=== PATIENT | female | born 1970 | race Caucasian/White ===

== ENCOUNTER 2016-09-30 12:20 | Emergency (ER) | payer SELFPAY ==
[2016-09-30 12:24] VITALS: BP 137/77
--- NOTE | 2016-09-30 13:09 | ER Document Report ---
ED Medical Screen (RME) - General Stated Complaint: MOUTH PAIN Time seen by provider: 13:08 Mode of Arrival: Ambulatory Information source: Patient Notes: 46-year-old female complaining of a dental abscess right lower gingiva. She has multiple decayed teeth. There is no fever. Is allergic to NSAIDs. I have greeted and performed a rapid initial assessment of this patient. A comprehensive ED assessment, evaluation of the patient, analysis of test results , and completion of the medical decision making process will be contacted by additional ED providers. TRAVEL OUTSIDE OF THE [place] IN LAST 30 DAYS: No - Related Data Allergies/Adverse Reactions: NSAIDS (Non-Steroidal Anti-Inflamma [Nsaids] Allergy (Verified 09/30/16 13:05) Past Medical History - Past Medical History Cardiac Medical History: Denies: Hx Coronary Artery Disease Neurological Medical History: Reports: Hx Seizures Endocrine Medical History: Denies: Hx Diabetes Mellitus Type 1, Hx Diabetes Mellitus Type 2 GI Medical History: Reports: Hx Colonoscopy, Hx Endoscopy Musculoskeltal Medical History: Reports Hx Fibromyalgia, Reports Hx Musculoskeletal Deformity, Reports Hx Musculoskeletal Trauma Psychiatric Medical History: Reports: Hx Anxiety, Hx Depression Traumatic Medical History: Reports: Hx Fractures Past Surgical History: Reports: Hx Abdominal Surgery, Hx Gastric Bypass Surgery , Hx Tubal Ligation - Immunizations Hx Diphtheria, Pertussis, Tetanus Vaccination: No Physical Exam - Vital signs Vitals: Temp Pulse Resp BP Pulse Ox 98.1 F 103 H 16 137/77 H 96 09/30/16 12:23 09/30/16 12:23 09/30/16 12:23 09/30/16 12:23 09/30/16 12:23 Course - Vital Signs Vital signs: Temp Pulse Resp BP Pulse Ox 98.1 F 103 H 16 137/77 H 96 09/30/16 12:23 09/30/16 12:23 09/30/16 12:23 09/30/16 12:23 09/30/16 12:23
[2016-09-30] MEDS ORDERED: BUPIVACAINE HCL 0.5 % INJ/PF 30 ML SDV INJ ONE (13:27)
--- NOTE | 2016-09-30 13:34 | ER Document Report ---
HPI - HPI Patient complains to provider of: toothache Pain Level: 4 Context: 46-year-old female complaining of a dental abscess right lower gingiva. She has multiple decayed teeth. There is no fever. Is allergic to NSAIDs. has been taking alot of apap without relief 4 days ago h/o dental abscess. has partial dentures PSH; gastric bypass PCP: dr adler - REPRODUCTIVE LMP: [id number] Reproductive: DENIES: : - DERM Skin Color: Normal Past Medical History - General Information source: Patient - Social History Smoking Status: Current Every Day Smoker Chew tobacco use (# tins/day): No Frequency of alcohol use: Occasional Drug Abuse: None Family History: Arthritis, Other - epilepsy/seizures. denies: CAD, CVA, DM, Hyperlipidemia, Hypertension, Malignancy, Thyroid Disfunction Patient has suicidal ideation: No Patient has homicidal ideation: No - Past Medical History Cardiac Medical History: Denies: Hx Coronary Artery Disease Neurological Medical History: Reports: Hx Seizures Endocrine Medical History: Denies: Hx Diabetes Mellitus Type 1, Hx Diabetes Mellitus Type 2 Renal/ Medical History: Denies: Hx Peritoneal Dialysis GI Medical History: Reports: Hx Colonoscopy, Hx Endoscopy Musculoskeltal Medical History: Reports Hx Fibromyalgia, Reports Hx Musculoskeletal Deformity, Reports Hx Musculoskeletal Trauma Psychiatric Medical History: Reports: Hx Anxiety, Hx Depression Traumatic Medical History: Reports: Hx Fractures Past Surgical History: Reports: Hx Abdominal Surgery, Hx Gastric Bypass Surgery , Hx Tubal Ligation - Immunizations Hx Diphtheria, Pertussis, Tetanus Vaccination: No Vertical Provider Document - CONSTITUTIONAL Agree With Documented VS: Yes - INFECTION CONTROL TRAVEL OUTSIDE OF THE [place] IN LAST 30 DAYS: No - HEENT HEENT: Atraumatic, Normal ENT Exam, Normocephalic, PERRLA Mouth Diagram: 1 - teeth missing but gingival inflammation, tenderness - NECK Neck: Normal Inspection Notes: No evidence of abscess. 18-gauge needle inserted into gingival inflammation without any return of pus. No evidence of [place] angina, retropharyngeal abscess or peritonsillar abscess - RESPIRATORY Respiratory: Breath Sounds Normal, No Respiratory Distress, Chest Non-Tender. negative: Rales, Rhonchi, Wheezing O2 Sat by Pulse Oximetry: 96 - CARDIOVASCULAR Cardiovascular: Regular Rate, Regular Rhythm, No Murmur Pulses: Normal: Radial - NEURO Level of Consciousness: Awake, Alert, Appropriate Motor/Sensory: No Motor Deficit, No Sensory Deficit - DERM Integumentary: Warm, Dry, No Rash Course - Re-evaluation Re-evalutation: 09/30/16 13:42 Patient is a 46-year-old female presents emergency department toothache for the past 4 days. No evidence of gingival abscess. Patient did receive a dental block with 0.5% Sensorcaine which did alleviate her symptoms. Will discharge patient home on by mouth penicillin and can follow up with dentist in the next 7 -10 days. - Vital Signs Vital signs: Temp Pulse Resp BP Pulse Ox 98.1 F 103 H 16 137/77 H 96 09/30/16 12:23 09/30/16 12:23 09/30/16 12:23 09/30/16 12:23 09/30/16 12:23 Discharge - Discharge Clinical Impression: Toothache Condition: Good Disposition: HOME, SELF-CARE Instructions: Penicillin V K (OM), Toothache (OM), Oral Narcotic Medication ( OM) Additional Instructions: Please follow-up with a dentist in 7-10 days to complete your antibiotics. Prescriptions: Oxycodone HCl/Acetaminophen [Percocet 5-325 mg Tablet] 1 tab PO Q6HP PRN #25 tab PRN Reason: Penicillin V Potassium [Penicillin Vk 500 mg Tablet] 500 mg PO BID #20 tablet Forms: Elevated Blood Pressure
== END 2016-09-30 15:54 | disposition home or self-care (01) ==
LOC: ER 12:20
PROC: 3E0T3BZ Introduction of Anesthetic Agent into Peripheral Nerves and Plexi, Percutaneous Approach (ICD-10-PCS; principal; 2016-09-30)
DX: K02.9 Dental caries, unspecified (principal); K05.10 Chronic gingivitis, plaque induced; K08.89 Other specified disorders of teeth and supporting structures; F17.200 Nicotine dependence, unspecified, uncomplicated; Z98.84 Bariatric surgery status; Z88.8 Allergy status to other drugs, medicaments and biological substances
CPT/HCPCS: 99282

== ENCOUNTER 2016-10-23 16:15 | Emergency (ER) | payer SELFPAY ==
--- NOTE | 2016-10-23 16:34 | ER Document Report ---
ED Medical Screen (RME) - General Chief Complaint: Toothache Stated Complaint: TOOTH PAIN Notes: 46 yo female c/o right lower dental pain x 3 days. treated for dental abscess last month. has not followed up with dental due to lack of insurance. no fever. no swelling TRAVEL OUTSIDE OF THE [place] IN LAST 30 DAYS: No - Related Data Allergies/Adverse Reactions: NSAIDS (Non-Steroidal Anti-Inflamma [Nsaids] Allergy (Verified 10/23/16 16:32) Past Medical History - Social History Chew tobacco use (# tins/day): No Frequency of alcohol use: None Drug Abuse: None - Past Medical History Cardiac Medical History: Denies: Hx Coronary Artery Disease Neurological Medical History: Reports: Hx Seizures Endocrine Medical History: Denies: Hx Diabetes Mellitus Type 1, Hx Diabetes Mellitus Type 2 Renal/ Medical History: Denies: Hx Peritoneal Dialysis GI Medical History: Reports: Hx Colonoscopy, Hx Endoscopy Musculoskeltal Medical History: Reports Hx Fibromyalgia, Reports Hx Musculoskeletal Deformity, Reports Hx Musculoskeletal Trauma Psychiatric Medical History: Reports: Hx Anxiety, Hx Depression Traumatic Medical History: Reports: Hx Fractures Past Surgical History: Reports: Hx Abdominal Surgery, Hx Gastric Bypass Surgery , Hx Tubal Ligation - Immunizations Hx Diphtheria, Pertussis, Tetanus Vaccination: No Physical Exam - Vital signs Vitals: Temp Pulse Resp BP Pulse Ox 98.3 F 99 16 125/95 H 95 10/23/16 16:28 10/23/16 16:28 10/23/16 16:28 10/23/16 16:28 10/23/16 16:28 Course - Vital Signs Vital signs: Temp Pulse Resp BP Pulse Ox 98.3 F 99 16 125/95 H 95 10/23/16 16:28 10/23/16 16:28 10/23/16 16:28 10/23/16 16:28 10/23/16 16:28
[2016-10-23] MEDS ORDERED: PENICILLIN V POTASSIUM 500 MG TABLET PO ONE (18:29)
[2016-10-23] MEDS ORDERED: PROMETHAZINE HCL 25 MG TABLET PO ONE (18:30)
[2016-10-23] MEDS ORDERED: OXYCODONE-ACETAMINOPHEN 5-325 MG TABLET PO ONE (18:30)
--- NOTE | 2016-10-23 18:37 | ER Document Report ---
ED Oral Problem - General Chief Complaint: Toothache Stated Complaint: TOOTH PAIN Notes: Patient has had pain around her lower right tooth with some swelling for the past 3-4 days. She was gently pressing on the swollen area a couple of days ago and a "pus pocket" opened and drained out some pus, but it has reoccurred and is even larger now. Her pain has gotten worse. No fever. TRAVEL OUTSIDE OF THE [place] IN LAST 30 DAYS: No - Related Data Allergies/Adverse Reactions: NSAIDS (Non-Steroidal Anti-Inflamma [Nsaids] Allergy (Verified 10/23/16 16:32) Past Medical History - Social History Smoking Status: Current Every Day Smoker Chew tobacco use (# tins/day): No Frequency of alcohol use: None Drug Abuse: None Family History: Reviewed & Not Pertinent, Arthritis, Other - epilepsy/seizures Patient has suicidal ideation: No Patient has homicidal ideation: No Neurological Medical History: Reports: Hx Seizures GI Medical History: Reports: Hx Colonoscopy, Hx Endoscopy Musculoskeltal Medical History: Reports Hx Fibromyalgia, Reports Hx Musculoskeletal Deformity, Reports Hx Musculoskeletal Trauma Psychiatric Medical History: Reports: Hx Anxiety, Hx Depression Traumatic Medical History: Reports: Hx Fractures Past Surgical History: Reports: Hx Abdominal Surgery - gastric bypass, Hx Gastric Bypass Surgery, Hx Tubal Ligation - Immunizations Hx Diphtheria, Pertussis, Tetanus Vaccination: No Review of Systems - Review of Systems Constitutional: denies: Fever EENT: Mouth pain, Mouth swelling, Dental problem. denies: Throat pain, Difficulty swallowing, Throat swelling Physical Exam - Vital signs Vitals: Temp Pulse Resp BP Pulse Ox 98.3 F 99 16 125/95 H 95 10/23/16 16:28 10/23/16 16:28 10/23/16 16:28 10/23/16 16:28 10/23/16 16:28 Interpretation: Normal - Notes Notes: PHYSICAL EXAMINATION: GENERAL: Appears in pain, but in no acute distress. Afebrile. HEAD: Atraumatic, normocephalic. EYES: Pupils equal round and reactive to light, extraocular movements intact. ENT: oropharynx clear without exudates. Moist mucous membranes. Swelling of the right mid mandible area which is very tender to the touch from the outside. Even more painful to touch from inside. I think I feel a fluctuant spot in the lower right sulcus. Several carious teeth present. NECK: Normal range of motion, supple. No impingement on swallowing or airway. LUNGS: Breath sounds clear and equal bilaterally. HEART: Regular rate and rhythm without murmurs. ABDOMEN: Soft, nontender. No guarding or rebound. Course - Re-evaluation Re-evalutation: 10/23/16 21:12 I attempted needle aspiration/ind with an 18-gauge needle and stuck it in the fluctuant area of the gum in the right sulcus and initially did not get any drainage, but after I had finished and gently pressed on the area, the patient says she could taste something in her mouth and feels like it is draining and when I returned later, she said that the swelling has gone down some. Patient will be put on penicillin and pain meds. - Vital Signs Vital signs: Temp Pulse Resp BP Pulse Ox 98.7 F 74 18 137/97 H 100 10/23/16 18:59 10/23/16 18:59 10/23/16 18:59 10/23/16 18:59 10/23/16 18:59 Discharge - Discharge Clinical Impression: Gingival abscess Condition: Stable Disposition: HOME, SELF-CARE Additional Instructions: Dental Infection or Abscess You have an infection, perhaps an abscess (pus formation) of the gum around one of your teeth, which is probably decayed. If there is an abscess, it may drain on its own or it may need to be opened or lanced. Severe swelling or drainage around a tooth usually means a deep dental abscess which usually requires evaluation and treatment by a dentist or oral surgeon. Antibiotics may be prescribed while awaiting dental treatment. If you develop high fever with chills, worsening pain, or increasing swelling in the area, see a dentist or oral surgeon immediately or return to the Emergency Department immediately. TOOTHACHE: Your pain is due to dental decay. The tooth must be repaired in order for you to feel better. You will, therefore, be referred to a dentist. We do not have dentists on the staff at [facility]. Severe swelling or drainage around a tooth usually means a dental abscess. This also requires evaluation and treatment by the dentist, but antibiotics may be prescribed while awaiting dental treatment. You should be rechecked immediately if you develop major swelling of the face, increasing pain, a lump in the jaw or gums, headache, difficulty swallowing, or fever. ORAL NARCOTIC MEDICATION: You have been given a prescription for pain control. This medication is a narcotic. It's best taken with food, as nausea can result if taken on an empty stomach. Don't operate machinery or drive within six hours of taking this medication. Do not combine this medicine with alcohol, or with any medication which can cause sedation (such as cold tablets or sleeping pills) unless you get permission from the physician. Narcotics tend to cause constipation. If possible, drink plenty of fluids and eat a diet high in fiber and fruits. PENICILLIN V K: You have been given a prescription for Penicillin VK. Your physician has determined that this is the best antibiotic for your condition. Pen VK can be taken with meals, however more of the antibiotic gets into the bloodstream if it's taken on an empty stomach. Penicillin usually has no side effects. However, allergy to penicillins is common. If you have had an allergic reaction to any drug of the penicillin family, you should never take any other penicillin. Notify your doctor at once if you develop hives, itching, swelling, faintness, or shortness of breath. FOLLOW-UP CARE: You have been referred for follow-up care to the dentists listed below. Call the dentists office for an appointment as you were instructed or within the next two days. If you experience worsening or a significant change in your symptoms, notify the physician immediately or return to the Emergency Department at any time for re-evaluation. If your gum is improving tomorrow morning, you don't need to return for a recheck. If your gum is more swollen tomorrow, return to the emergency department for reevaluation. If your gum is not worse tomorrow but has not shown improvement by Friday morning, return for reevaluation then. The following dental care facilities may be able to help you: [facility] [address] [place], [place] Friday mornings, by appointment [facility] [address] [place] [address] [facility] [address] [facility] [address] [facility] [address] [facility] [address] [email or web address] [address] [place] [address] Friday- 8:00am to 5:00 pm Will see patients from other [facility]. Charges based on income and family size and accepts Medicare, Medicaid, and Insurances Will pull molars [facility] [employer] [facility] [id number] Hours of Operation 8:00 am - 4:30 pm weekdays The following dental offices accept Medicaid: [facility] Dr. Steve Dr. Nichole Dr. Oconnor Dr. Pedersen Joshua Guillaume Lutsavage, and John oral surgery Dr. Montenegro ([place]) Dr. Gomez ([place]) [facility] Drs. Knight and Gurpreet ([place]) Dr. Bass ([place]) [facility] Dr. Aggarwal ([place]) Drs. Jorge and ([place]) Medicaid Care Line Prescriptions: Oxycodone HCl/Acetaminophen [Percocet 5-325 mg Tablet] 1 - 2 tab PO Q4H PRN #15 tablet PRN Reason: Penicillin V Potassium [Penicillin Vk 500 mg Tablet] 500 mg PO QID #25 tablet Referrals: KILO OLIVIER MD [Primary Care Provider] - Follow up as needed
[2016-10-23 19:01] VITALS: BP 137/97
== END 2016-10-23 18:59 | disposition home or self-care (01) ==
LOC: ER 16:15
DX: K05.219 Aggressive periodontitis, localized, unspecified severity (principal); K02.9 Dental caries, unspecified; K08.89 Other specified disorders of teeth and supporting structures; R22.0 Localized swelling, mass and lump, head; F17.200 Nicotine dependence, unspecified, uncomplicated; Z88.8 Allergy status to other drugs, medicaments and biological substances; Z98.84 Bariatric surgery status
CPT/HCPCS: 99282

== ENCOUNTER 2017-01-28 16:04 | Emergency (ER) | payer SELFPAY ==
[2017-01-28 16:16] VITALS: BP 128/75
[2017-01-28] MEDS ORDERED: ACETAMINOPHEN 325 MG TABLET PO ONE (17:48)
[2017-01-28] MEDS ORDERED: CYANOCOBALAMIN (VITAMIN B-12) INJ 1000 MCG/1 ML VIAL IM ONE (17:48)
--- NOTE | 2017-01-28 17:48 | ER Document Report ---
ED General Pain - General Chief Complaint: Back Pain Stated Complaint: BACK PAIN,FALL Time Seen by Provider: 01/28/17 17:12 Mode of Arrival: Ambulatory Information source: Patient Notes: Is a 46-year-old female who is well-known to this emergency department for pain complaints who presents to the ER today for low back pain after a fall over a month ago from her chair. Patient does not know why she fell but states that she "falls all the time." Patient is complaining of some left hip and right hip pain, left worse than right. Patient states that she needs to start going to pain management because she "knows I have slipped disc." She admits to numbness and tingling but states that she always has those in the feet. She denies hitting her head or loss of consciousness during the fall. TRAVEL OUTSIDE OF THE [place] IN LAST 30 DAYS: No - Related Data Allergies/Adverse Reactions: NSAIDS (Non-Steroidal Anti-Inflamma [Nsaids] Allergy (Verified 01/28/17 16:12) Past Medical History - General Information source: Patient - Social History Smoking Status: Current Every Day Smoker Chew tobacco use (# tins/day): No Frequency of alcohol use: None Drug Abuse: None Family History: Reviewed & Not Pertinent, Arthritis, Other - epilepsy/seizures Patient has suicidal ideation: No Patient has homicidal ideation: No - Past Medical History Cardiac Medical History: Denies: Hx Coronary Artery Disease Neurological Medical History: Reports: Hx Seizures Endocrine Medical History: Denies: Hx Diabetes Mellitus Type 1, Hx Diabetes Mellitus Type 2 Renal/ Medical History: Denies: Hx Peritoneal Dialysis GI Medical History: Reports: Hx Colonoscopy, Hx Endoscopy Musculoskeltal Medical History: Reports Hx Fibromyalgia, Reports Hx Musculoskeletal Deformity, Reports Hx Musculoskeletal Trauma Psychiatric Medical History: Reports: Hx Anxiety, Hx Depression Traumatic Medical History: Reports: Hx Fractures Past Surgical History: Reports: Hx Abdominal Surgery - gastric bypass, Hx Gastric Bypass Surgery, Hx Tubal Ligation - Immunizations Hx Diphtheria, Pertussis, Tetanus Vaccination: No Review of Systems - Review of Systems Constitutional: No symptoms reported EENT: No symptoms reported Cardiovascular: No symptoms reported Respiratory: No symptoms reported Gastrointestinal: No symptoms reported Genitourinary: No symptoms reported Female Genitourinary: No symptoms reported Musculoskeletal: See HPI Skin: No symptoms reported Hematologic/Lymphatic: No symptoms reported Neurological/Psychological: No symptoms reported Physical Exam - Vital signs Vitals: Temp Pulse Resp BP Pulse Ox 98.6 F 92 18 128/75 H 99 01/28/17 16:12 01/28/17 16:12 01/28/17 16:12 01/28/17 16:12 01/28/17 16:12 - Notes Notes: PHYSICAL EXAMINATION: GENERAL: Appears older than stated age, and in no acute distress. HEAD: Atraumatic, normocephalic. EYES: Pupils equal round and reactive to light, extraocular movements intact, sclera anicteric, conjunctiva are normal. NECK: Normal range of motion, supple without lymphadenopathy LUNGS: CTAB and equal. No wheezes rales or rhonchi. HEART: Regular rate and rhythm without murmurs ABDOMEN: Soft, no tenderness. No guarding, no rebound BACK: no vertebral tenderness, normal ROM GI/: no CVA tenderness EXTREMITIES: Left hip tenderness, Normal range of motion, no pitting edema. No cyanosis. Good distal pulses NEUROLOGICAL: Cranial nerves grossly intact. Normal sensory/motor exams. PSYCH: Normal mood, normal affect. SKIN: Warm, Dry, normal turgor, no rashes or lesions noted Course - Re-evaluation Re-evalutation: 01/28/17 19:04 Lumbar and hip x-rays negative for any acute pathology. - Vital Signs Vital signs: Temp Pulse Resp BP Pulse Ox 98.6 F 92 16 128/75 H 99 01/28/17 16:12 01/28/17 16:12 01/28/17 17:28 01/28/17 16:12 01/28/17 16:12 Discharge - Discharge Clinical Impression: Back pain Qualifiers: Back pain location: low back pain Chronicity: acute Back pain laterality: midline Sciatica presence: without sciatica Qualified Code(s): M54.5 - Low back pain Hip pain Qualifiers: Laterality: bilateral Qualified Code(s): M25.551 - Pain in right hip; M25.552 - Pain in left hip Condition: Stable Disposition: HOME, SELF-CARE Instructions: Ice Packs ([facility]), Warm Packs ([facility]), Low Back Pain ([facility]) Additional Instructions: Return for any worsening symptoms, please follow up with your primary care provider as soon as possible. Prescriptions: Lidocaine [Lidoderm 5% (700 mg) Transdermal Patch] 1 patch TP DAILY #10 adh..patch
[2017-01-28] MEDS ORDERED: CYCLOBENZAPRINE HCL 10 MG TABLET PO ONE (17:49)
[2017-01-28] MEDS ORDERED: LIDOCAINE 5% (700 MG) TRANSDERMAL ADH..PATCH TP ONE (18:25)
--- NOTE | 2017-01-28 18:52 | RADIOLOGY REPORT (SQ) ---
EXAM DESCRIPTION: L SPINE 2 VIEWS COMPLETED DATE/TIME: 01/28/2017 6:41 pm REASON FOR STUDY: pain, fall COMPARISON: None. NUMBER OF VIEWS: Three views. TECHNIQUE: AP, lateral and sacral radiographic images acquired of the lumbar spine. LIMITATIONS: None. FINDINGS: MINERALIZATION: Normal. SEGMENTATION: Normal. No transitional anatomy. ALIGNMENT: Alignment is normal. Mild levoscoliosis. VERTEBRAE: Maintained height. No fracture or worrisome bone lesion. DISCS: Mild multilevel degenerative disc disease most notable at L5-S1. POSTERIOR ELEMENTS: Pedicles and facets are intact. No pars defect or posterior arch defects. HARDWARE: None in the spine. PARASPINAL SOFT TISSUES: Normal. PELVIS: Intact as visualized. No fractures or worrisome bone lesions. SI joints intact. OTHER: No other significant finding. IMPRESSION: MILD DEGENERATIVE CHANGE WITHOUT FRACTURE IDENTIFIED. TECHNICAL DOCUMENTATION: JOB ID: [id number] [employer]- All Rights Reserved
--- NOTE | 2017-01-28 18:53 | RADIOLOGY REPORT (SQ) ---
EXAM DESCRIPTION: HIP BILATERAL COMPLETED DATE/TIME: 01/28/2017 6:41 pm REASON FOR STUDY: pain, fall COMPARISON: None. NUMBER OF VIEWS: Two views TECHNIQUE: AP pelvis and additional frog-leg view of both hips. LIMITATIONS: None. FINDINGS: MINERALIZATION: Normal. HIPS: No acute fracture or dislocation. No worrisome bone lesions. PELVIS AND SACRUM: No acute fracture or dislocation. No worrisome bone lesions. PUBIS AND ISCHIUM: No acute fracture. LOWER LUMBAR SPINE: No significant findings as visualized. SOFT TISSUES: No findings. OTHER: No other significant finding. IMPRESSION: NEGATIVE STUDY OF THE PELVIS AND HIPS. TECHNICAL DOCUMENTATION: JOB ID: [id number] [employer]- All Rights Reserved
== END 2017-01-28 19:31 | disposition home or self-care (01) ==
LOC: ER 16:04
DX: M54.5 Low back pain (principal); M25.552 Pain in left hip; M25.551 Pain in right hip; W19.XXXA Unspecified fall, initial encounter; F17.200 Nicotine dependence, unspecified, uncomplicated; Z98.84 Bariatric surgery status; Z98.51 Tubal ligation status
CPT/HCPCS: 99283; 96372; 72100; 73522; J3420

== ENCOUNTER 2018-10-12 12:08 | Emergency (ER) | payer SELFPAY ==
[2018-10-12 12:14] VITALS: BP 135/89
== END 2018-10-12 14:30 | disposition left against medical advice (07) ==
LOC: ER 12:08
DX: Z53.21 Procedure and treatment not carried out due to patient leaving prior to being seen by health care provider (principal)